=== PATIENT | female | born 1980 | race Caucasian/White ===

== ENCOUNTER 2017-02-03 17:40 | Emergency (ER) | payer OTHER ==
[~2017-02-03] VITALS: Ht 167.6 cm; Wt 58.5 kg
[~2017-02-03 17:40] MED LIST: ACET325T14
[2017-02-03] MEDS ORDERED: SODIUM CHLORIDE 0.9% 1,000ML IVBOLUS ONE (18:00)
[2017-02-03] MEDS ORDERED: ONDANSETRON 2MG/ML, 2ML IVPush ONE (18:00)
[2017-02-03] MEDS ORDERED: SODIUM CHLORIDE FLUSH 10ML SYR IVF ONE (18:00)
[2017-02-03 18:24] LABS: BLOOD UREA NITROGEN 7 mg/dL (7-18)
[2017-02-03] MEDS ORDERED: MORPHINE SULFATE 4 MG/ML, 1ML ONE ×2 (18:31→19:26)
[2017-02-03] MEDS ORDERED: ONDANSETRON 2MG/ML, 2ML ONE (18:31)
[2017-02-03] MEDS: MORPHINE SULFATE 4 MG/ML, 1ML IVPush PRN ×2 (18:40→19:28)
[2017-02-03] MEDS ORDERED: OMNIPAQUE 350 MG/ML, 100ML BOTTLE ONE (20:38)
[2017-02-03 21:50] VITALS: BP 118/67
== END 2017-02-03 21:51 | disposition home or self-care (01) ==
LOC: ED 21:45
DX: J15.9 Unspecified bacterial pneumonia (principal); Z90.710 Acquired absence of both cervix and uterus; Z87.891 Personal history of nicotine dependence
CPT/HCPCS: 36415; 74177; 80048; 80076; 81001; 82040; 83690; 85025; 96361; 96374; 96375; 96376; 99285; J2405; J7030; Q9967

== ENCOUNTER 2019-10-31 05:05 | Emergency (ER) | payer OTHER ==
[~2019-10-31] VITALS: Ht 165.1 cm; Wt 66.4 kg
[2019-10-31 05:10] VITALS: BP 136/73
--- NOTE | 2019-10-31 05:38 | NUR ---
RN introduced self to patient, patient has been assessed by provider. Awaiting orders.
== END 2019-10-31 06:12 | disposition home or self-care (01) ==
LOC: ED 05:31
DX: J02.0 Streptococcal pharyngitis (principal); Z87.891 Personal history of nicotine dependence
CPT/HCPCS: 99283